=== PATIENT | female | born 1985 | race Caucasian/White ===

== ENCOUNTER 2016-05-02 10:05 | Outpatient (CLI) | payer MEDICAID ==
[~2016-05-02] VITALS: Ht 165.1 cm; Wt 88.8 kg
[2016-05-02 10:11] VITALS: BMI 32.1
[2016-05-02 10:12] VITALS: Ht 165.1 cm; Wt 88.8 kg
[2016-05-02 10:14] VITALS: BP 117/61; PULSE 90; RESP 20
[2016-05-02 10:47] LABS: URINE BLOOD (Dip) POC Trace-lysed (NEGATIVE)
== END 2016-05-02 12:15 | disposition left against medical advice (07) ==
LOC: OBT 10:05 → L-D 10:06 → OBT 12:15
PROVIDERS: ATTEND Obstetrics & Gynecology
DX: O48.0 Post-term pregnancy (principal); Z3A.41 41 weeks gestation of pregnancy
CPT/HCPCS: 81003; Z7500; G0463

== ENCOUNTER 2016-05-05 10:15 | Outpatient (CLI) | payer MEDICAID ==
[~2016-05-05] VITALS: Ht 165.1 cm; Wt 90.2 kg
[2016-05-05 10:25] VITALS: Ht 165.1 cm; Wt 90.2 kg
[2016-05-05 10:26] VITALS: BP 114/64; PULSE 86; RESP 18
--- NOTE | 2016-05-05 11:11 | RADRPT ---
PROCEDURE: OB ultrasound for biophysical profile CLINICAL INDICATION: Post dates TECHNIQUE: Multiple sonographic images of the pelvis were obtained. Transabdominal views of the g ravid uterus are available for review. The images were reviewed on a PACS workstation. COMPARISON: None FINDINGS: breathing movement = 2/2 tone = 2/2 motion = 2/2 MONISHA = 2/2 MONISHA = 8.2 cm Single live intrauterine with cardiac activity of 141 bpm. position is cephal ic. The placenta is anterior. IMPRESSION: 1. Single live intrauterine gestation. 2. Biophysical profile = 8/8. 3. MONISHA = 8.2 cm. RPTAT: HH .Vickie Mathew MD, MD Date Time Electronically viewed and signed by .Vickie Mathew MD, on 05/05/2016 11:11 .G/
--- NOTE | 2016-05-05 11:13 | RADRPT ---
PROCEDURE: US OB. CLINICAL INDICATION: Post dates TECHNIQUE: Multiple sonographic images of the pelvis were obtained. Transabdominal imaging only w as performed. The images were reviewed on a PACS workstation. COMPARISON: No prior studies are available for comparison. FINDINGS: There is a single live intrauterine gestation. Cardiac activity is present with 136 beats per minut e. position is cephalic. Measurements were made in order to determine age. The results are as follows: BPD = 9.18 cm HC = 32.05 cm AC = 36.57 cm FL = 7.46 cm. Estimated gestational age of approximately 38 weeks 0 days. The estimated date of delivery is 05/19/2016. The EFW = 3674 g, 44.5 %ile. The placenta is anterior. There is no evidence for an abruption or placenta previa. IMPRESSION: 1. Single live intrauterine gestation of approximately 38 weeks 0 days, by ultrasound criteria. 2. The estimated date of delivery is 05/19/2016. 3. The estimated weight is 3674 g, 44.5 %ile. RPTAT: HH .Vickie Mathew MD, Date Time Electronically viewed and signed by .Vickie Mathew MD, on 05/05/2016 11:13 .G/
--- NOTE | 2016-05-05 12:07 | HP ---
Date/Time of Note Date/Time of Note DATE: 05/05/16 TIME: 12:06 OB - History Hx of Present Free Text/Dictation @40+4 wks GA Postdate in early labor : 2 Para: 1 Ultrasounds: Normal mid trimester US Obstetrical Complications: None Medical Complications: None Past Family/Social History * Past Medical, Surgical, Family and Obstetric Histories reviewed from chart. OB Admission Exam Vital Signs Vital Signs Vital Signs Date Time Temp Pulse Resp B/P Pulse Ox O2 Delivery O2 Flow Rate FiO2 05/05/16 10:26 97.7 86 18 114/64 Room Air Physical Exam Abdomen: WNL Extremities: Normal Cervical Dilatation: 2cm Effacement: 50% Station: -1 Membranes: Intact Heart Rate: 140's Accelerations: Accelerations Present Decelerations: No Decelerations Varibility: Moderate Contractions on Admission: 6-10 Minutes Apart OB Assessment/Plan Reason for admission: induction of labor Plan: Expectant Management LAURA GARCÍA M.D. May 05, 2016 12:07
== END 2016-05-05 13:05 | disposition home or self-care (01) ==
LOC: OBT 10:15 → L-D 10:16 → OBT 13:05
PROVIDERS: ATTEND Obstetrics & Gynecology
DX: O48.0 Post-term pregnancy (principal); Z3A.00 Weeks of gestation of pregnancy not specified
CPT/HCPCS: 76815; 76818

== ENCOUNTER 2016-05-08 06:00 | Inpatient (IN) | payer MEDICAID ==
[~2016-05-08] VITALS: Ht 165.1 cm; Wt 89.5 kg
[2016-05-08] MEDS ORDERED: LACTATED RINGER'S 1,000 ML IV PRN (08:00)
[2016-05-08] MEDS: LACTATED RINGER'S 1,000 ML IV SCH ×4 (08:52→17:39)
[2016-05-08] MEDS ORDERED: MISOPROSTOL 200 MCG TAB PR PRN (09:00)
[2016-05-08] MEDS ORDERED: METHYLERGONOVINE 0.2 MG INJ IM PRN (09:00)
[2016-05-08] MEDS ORDERED: LIDOCAINE 1% (MPF) 30 ML INJ INJ PRN (09:00)
[2016-05-08] MEDS ORDERED: CARBOPROST 250 MCG INJ IM PRN (09:00)
[2016-05-08] MEDS ORDERED: BUTORPHANOL 2 MG INJ IV PRN (09:00)
[2016-05-08] MEDS ORDERED: DINOPROSTONE 10 MG VAG SUPP VAG ONE (09:00)
[2016-05-08] MEDS ORDERED: OXYTOCIN 30 UNITS/LR 500 ML IV PRN (09:00)
[2016-05-08] MEDS ORDERED: OXYTOCIN 30 UNITS/LR 500 ML IV SCH ×3 (09:00)
[2016-05-08 10:01] LABS: BASOPHILS % 0.6 % (0.0-2.0); EOSINOPHILS # 0.1 10^3/ul (0.0-0.5); EOSINOPHILS % 1.3 % (0.0-7.0); HEMOGLOBIN 13.1 g/dl (12.0-16.0); LYMPHOCYTES # 1.2 10^3/ul (0.8-2.9); LYMPHOCYTES % 17.2 % (15.0-51.0); MEAN CORPUSCULAR HEMOGLOBIN 27.2 pg (29.0-33.0); MEAN CORPUSCULAR HGB CONC 33.5 g/dl (32.0-37.0); MEAN CORPUSCULAR VOLUME 81.1 fl (82.0-101.0); MEAN PLATELET VOLUME 11.5 fl (7.4-10.4); MONOCYTE # 0.4 10^3/ul (0.3-0.9); MONOCYTES % 5.2 % (0.0-11.0); NEUTROPHIL # 5.4 10^3/ul (1.6-7.5); NEUTROPHILS % 75.7 % (39.0-77.0); PLATELET COUNT 149 10^3/UL (140-440); RED BLOOD COUNT 4.81 10^6/ul (4.20-5.40); UNCORRECTED WBC 7.1 10^3/ul (4.8-10.8); WHITE BLOOD COUNT 7.1 10^3/ul (4.8-10.8)
[2016-05-08 10:03] LABS: CONDITION 1; LH ANALYZER COMMENTS 1; SUSPECT 1
[2016-05-08 11:13] LABS: INR 1.04; PROTIME 13.6 Sec (12.2-14.2); PT RATIO 1.1
[2016-05-08 11:14] LABS: PARTIAL THROMBOPLASTIN TIME 27.5 Sec (25.0-35.0)
[2016-05-08 14:08] LABS: PLATELETS CLUMPS NO CLUMPS
[2016-05-08 16:10] VITALS: Ht 165.1 cm; Wt 89.5 kg
[2016-05-08 16:12] VITALS: BP 125/73; PULSE 74; RESP 20
[2016-05-08] MEDS ORDERED: FENTAnyl 2MCG/ML-ROPIV 0.2% 100 ML ONE (16:42)
[2016-05-08] MEDS ORDERED: FENTAnyl 2MCG/ML-ROPIV 0.2% 100 ML BAG EPI SCH (17:30)
[2016-05-08] MEDS ORDERED: NALOXONE (0.4 MG/ML) INJ IV PRN (17:30)
[2016-05-08] MEDS ORDERED: MINERAL OIL LIGHT 10 ML VIAL TOP PRN (19:30)
--- NOTE | 2016-05-08 20:14 | LDN ---
Date/Time of Note Date/Time of Note DATE: 05/08/16 TIME: 20:09 Delivery Summary Normal spontaneous vaginal delivery of a baby boy from HAYDEE position shoulders delivered without any difficulty but required suprapubic pressure, the rest of the baby's body follow after the delivery of the shoulders cord clamped after stopped pulsation placenta spontaneous expulsion inspected complete slightly meconium stained and it was sent to the pathology baby's weight was 8 lbs. 9 oz. and patient sustained second-degree perineal laceration which was repaired with 2 0 and 3-0 chromic catgut estimated blood loss 250 cc at the end of the delivery uterus was firm vagina inspected no bleeding noted from the site of the repair. Placenta Delivered: Spontaneously Meconium: Light Perineum intact?: No Perineal laceration repair: Second-degree perineal laceration repair with 2 0 and 4-0 chromic catgut Anesthesia type: Epidural Sponge & Needle done & correct: Yes All needle counts correct: Yes Any foreign bodies felt in the: No Problems: Infant Delivery Information Sex Sex: male Apgars 1 Minute: 9 5 Minute: 9 Suctioning Nose & mouth suctioned at fausto: Yes Delee suction performed: No Umbilical Cord Umbilical cord with: 3 Vessels Cord presentations: no nuchal cord Cord Blood was obtained: Yes NIKITA ENRIQUE MD May 08, 2016 20:14
--- NOTE | 2016-05-08 20:30 | HP ---
Date/Time of Note Date/Time of Note DATE: 05/08/16 TIME: 20:15 OB - History Hx of Present Free Text/Dictation 30 years old female 2 para 1 EDC of May 01, 2016 admitted to [facility] for induction of labor ,on admission cervical dilatation was at 5 cm 80% effacement vertex at -1 station patient underwent IV Pitocin drip induction. Past OB history, vaginal delivery 8 years Allergy denies allergy to any known medication Social habit denies a smoking or drink Review of system within normal Physical exam 5 feet 5" 189 Temp 90.1 pulse 80 respiration blood pressure 128/60 Estimated Due Date: May 01, 2016 : 2 Para: 1 Care: Good Care Ultrasounds: Normal mid trimester US Obstetrical Complications: None Medical Complications: None Past Family/Social History * Past Medical, Surgical, Family and Obstetric Histories reviewed from chart. Rubella: immune RPR/VDRL: Negative GBS Status: Negative HBsAG: Negative OB Admission Exam Vital Signs Vital Signs Vital Signs Date Time Temp Pulse Resp B/P Pulse Ox O2 Delivery O2 Flow Rate FiO2 05/08/16 16:12 98.1 74 20 125/73 Room Air Physical Exam HEENT: WNL Lungs: Clear, Equal Abdomen: WNL Extremities: Normal Reflexes: Normal Cervical Dilatation: 5cm Effacement: 75% Station: -1 Membranes: Intact Amniotic Fluid: Thin Meconium Heart Rate: 130's Accelerations: Accelerations Present Decelerations: Early Decelerations Varibility: Marked Contractions on Admission: 6-10 Minutes Apart Intensity: Mild Last 72 hours Lab Results CBC & BMP 05/08/16 07:44 NIKITA ENRIQUE MD May 08, 2016 20:25
[2016-05-08] MEDS ORDERED: OXYCODONE/ASPIRIN (4.88/325) TAB PO PRN ×2 (21:30)
[2016-05-08] MEDS ORDERED: ACETAMINOPHEN 325 MG TAB PO PRN (21:30)
[2016-05-08] MEDS ORDERED: LANOLIN 7 GM TUBE TOP PRN (21:30)
[2016-05-08] MEDS ORDERED: WITCH HAZEL/GLYCERIN PAD PR PRN (21:30)
[2016-05-08] MEDS ORDERED: ONDANSETRON 4 MG INJ IV PRN (21:30)
[2016-05-08] MEDS ORDERED: BENZOCAINE 20% 56 ML SPRAY TOP PRN (21:30)
[2016-05-08] MEDS ORDERED: ACETAMINOPHEN/CODEINE #3 TAB PO PRN ×2 (21:30)
[2016-05-08] MEDS ORDERED: DIBUCAINE 1% 30 GM OINT PR PRN (21:30)
[2016-05-08 22:00] VITALS: BP 111/63; PULSE 90; RESP 18
[2016-05-08] MEDS: OXYTOCIN 30 UNITS/LR 500 ML IV SCH (22:37)
[2016-05-08 23:00] VITALS: BP 110/72; PULSE 130
[2016-05-08] MEDS: IBUPROFEN 600 MG TAB PO SCH (23:13)
[2016-05-09] MEDS: OXYTOCIN 30 UNITS/LR 500 ML IV SCH (01:04)
[2016-05-09 04:00] VITALS: BP 102/64; PULSE 70; RESP 19
[2016-05-09] MEDS: IBUPROFEN 600 MG TAB PO SCH ×4 (05:14→23:31)
[2016-05-09 08:30] VITALS: BP 100/59; PULSE 71; RESP 18
[2016-05-09] MEDS: SENNA/DOCUSATE NA (8.6MG/50MG) TAB PO SCH ×2 (09:18→20:19)
--- NOTE | 2016-05-09 09:54 | PN ---
Date/Time of Note Date/Time of Note DATE: 05/09/16 TIME: 09:54 OB Subjective Subjective Subjective day 1 Afebrile abdomen soft uterus firm lochia normal extremity normal ambulation recommended Laboratory Tests Test 05/08/16 10:10 05/09/16 00:46 Activated Partial Thromboplast Time 27.5Sec INR International Normalized Ratio 1.04 Prothrombin Time 13.6Sec Prothrombin Time Ratio 1.1 Bedside Glucose 57mg/dL Current Medications Medications (Trade) Dose Ordered Sig/Myles Route PRN Reason Start Time Stop Time Status Last Admin Dose Admin Lactated Ringer's 1,000 ml @ 125 mls/hr Q8H IV 05/08/16 08:52 05/08/16 21:21 DC 05/08/16 16:13 Lactated Ringer's (Lr) 1,000 ml @ 125 mls/hr Q8H IV 05/08/16 08:52 05/08/16 21:21 DC 05/08/16 17:39 Dinoprostone 10 mg 10 mg ONCE ONCE VAG 05/08/16 09:00 05/08/16 09:02 DC 05/08/16 09:28 Oxytocin/Lactated Ringer's 500 ml @ 0 mls/hr TITRATE IV 05/08/16 09:00 05/08/16 21:21 DC 05/08/16 17:37 Butorphanol Tartrate (Stadol) 2 mg Q2H PRN IV PAIN 05/08/16 09:00 05/08/16 21:21 DC 05/08/16 15:39 Lidocaine 30 ml 30 ml ONCE PRN INJ EPISIOTOMY/TEARING 05/08/16 09:00 05/08/16 21:21 DC Oxytocin/Lactated Ringer's 500 ml @ 125 mls/hr ONCE -MAY REPEAT X1 IV 05/08/16 09:00 05/08/16 21:21 DC Oxytocin/Lactated Ringer's 500 ml @ 125 mls/hr ONCE IV 05/08/16 09:00 05/08/16 21:21 DC Lactated Ringer's 1,000 ml @ 2,000 mls/hr Q30M PRN IV PRE-EPIDURAL BOLUS 05/08/16 08:00 05/08/16 21:21 DC 05/08/16 16:39 Oxytocin/Lactated Ringer's 500 ml @ 0 mls/hr ONCE PRN IV For Hemorrhage Management 05/08/16 09:00 05/08/16 21:20 DC Methylergonovine Maleate (Methergine) 0.2 mg ONCE PRN IM VAGINAL BLEEDING 05/08/16 09:00 05/08/16 21:20 DC Carboprost Tromethamine (Hemabate) 250 mcg ONCE PRN IM VAGINAL BLEEDING 05/08/16 09:00 05/08/16 21:20 DC Misoprostol 1000 mcg 1,000 mcg ONCE PRN VT VAGINAL BLEEDING 05/08/16 09:00 05/08/16 21:20 DC Fentanyl/ Ropivacaine 100 ml @ STK-MED ONCE .ROUTE 05/08/16 16:42 05/08/16 16:43 DC Naloxone HCl (Narcan) 0.2 mg Q2M PRN IV FOR RESP RATE 8 OR LESS 05/08/16 17:30 05/08/16 21:20 DC Fentanyl/ Ropivacaine 100 ml EPIDURAL (PCEA) EPI 05/08/16 17:30 05/08/16 21:20 DC Mineral Oil PRN PRN TOP DECREASED GLUCOSE 05/08/16 19:30 05/08/16 21:20 DC Oxytocin/Lactated Ringer's 500 ml @ 125 mls/hr Q4H IV 05/08/16 21:18 05/09/16 05:17 DC 05/09/16 01:04 Ibuprofen (Motrin) 600 mg Q6 PO 05/09/16 00:00 05/09/16 05:14 Acetaminophen (Tylenol Tab) 650 mg Q4H PRN PO PAIN LEVEL 1-5 05/08/16 21:30 Acetaminophen/ Codeine Phosphate (Tylenol No.3) 1 tab Q4H PRN PO PAIN LEVEL 1-5 05/08/16 21:30 Acetaminophen/ Codeine Phosphate (Tylenol No.3) 2 tab Q4H PRN PO PAIN LEVEL 6-10 05/08/16 21:30 Oxycodone/Aspirin (Percodan) 1 tab Q3H PRN PO PAIN LEVEL 1-5 05/08/16 21:30 Oxycodone/Aspirin (Percodan) 2 tab Q3H PRN PO PAIN LEVEL 6-10 05/08/16 21:30 Ondansetron HCl (Zofran Inj) 4 mg Q6H PRN IV NAUSEA AND/OR VOMITING 05/08/16 21:30 Senna/Docusate Sodium (Senokot-S) 1 tab BID PO 05/09/16 09:00 05/09/16 09:18 Witch Niki/ Glycerin (Tucks Pads) 1 pad BEDSIDE MEDICATION PRN VT HEMORRHOID/EPISIOTMY PAIN 05/08/16 21:30 05/08/16 23:13 Benzocaine (Dermoplast [place]) 1 spray BEDSIDE MEDICATION PRN TOP HEMORRHOID/EPISIOTMY PAIN 05/08/16 21:30 05/08/16 23:13 Dibucaine (Nupercainal) 1 applic BEDSIDE MEDICATION PRN VT HEMORRHOID/EPISIOTMY PAIN 05/08/16 21:30 Lanolin (Jyf-L-Ljiraf) 1 applic BEDSIDE MEDICATION PRN TOP BEDSIDE FOR CARMEN TO NIPPLES 05/08/16 21:30 Measles/Mumps/ Rubella Vaccine Live (Mmr Ii Vaccine) 0.5 ml ONCE ONCE SC* 05/10/16 09:00 05/10/16 09:01 NIKITA ENRIQUE MD May 09, 2016 09:54
[2016-05-09 16:21] VITALS: BP 111/67; PULSE 89; RESP 18
[2016-05-09 17:20] LABS: BASOPHILS % 0.4 % (0.0-2.0); EOSINOPHILS # 0.1 10^3/ul (0.0-0.5); EOSINOPHILS % 0.9 % (0.0-7.0); HEMATOCRIT 27.6 % (37.0-47.0); HEMOGLOBIN 9.2 g/dl (12.0-16.0); LYMPHOCYTES # 1.5 10^3/ul (0.8-2.9); LYMPHOCYTES % 18.8 % (15.0-51.0); MEAN CORPUSCULAR HEMOGLOBIN 27.3 pg (29.0-33.0); MEAN CORPUSCULAR HGB CONC 33.4 g/dl (32.0-37.0); MEAN CORPUSCULAR VOLUME 81.9 fl (82.0-101.0); MEAN PLATELET VOLUME 10.5 fl (7.4-10.4); MONOCYTE # 0.4 10^3/ul (0.3-0.9); MONOCYTES % 4.5 % (0.0-11.0); NEUTROPHIL # 6.1 10^3/ul (1.6-7.5); NEUTROPHILS % 75.4 % (39.0-77.0); PLATELET COUNT 143 10^3/UL (140-440); RED BLOOD COUNT 3.37 10^6/ul (4.20-5.40); RED CELL DISTRIBUTION WIDTH 16.8 % (11.5-14.5)
[2016-05-09 17:31] LABS: CONDITION 1; LH ANALYZER COMMENTS 1
[2016-05-09 20:00] VITALS: BP 114/71; PULSE 66; RESP 18
[2016-05-09 20:20] VITALS: BP 106/53; PULSE 87; RESP 16
[2016-05-10 03:30] VITALS: BP 110/63; PULSE 75; RESP 18
[2016-05-10] MEDS: IBUPROFEN 600 MG TAB PO SCH ×3 (05:31→17:27)
[2016-05-10 07:45] VITALS: BP 107/69; PULSE 84; RESP 18
[2016-05-10] MEDS ORDERED: MEASLES,MUMPS,RUBELLA VACCINE INJ SC* ONE (09:00)
[2016-05-10] MEDS: SENNA/DOCUSATE NA (8.6MG/50MG) TAB PO SCH (09:44)
--- NOTE | 2016-05-10 13:16 | PD.PPDC ---
GLOBAL LEAD Discharge Instruction Condition Patient Condition: Good Diet Diet: Resume Regular Diet Activity/Restrictions Activity: Normal Activity May Shower Restrictions: No Exercising No Lifting No Driving No Sexual Activity Nothing in the Vagina No [place] No Tampons, douche Follow-up Follow-up with Physician: 2, Week/Weeks Return to clinic for [employer] Instructions: Fever greater than 101 Worsening abdominal pain More than 2 pads per hour OB Instructions: Breast Tenderness Blurried Vision NIKITA ENRIQUE MD May 10, 2016 13:15
--- NOTE | 2016-05-10 13:19 | DS ---
Date/Time of Note Date/Time of Note DATE: 05/10/16 TIME: 13:16 Obstetrical Discharge Record Final Diagnosis Final Diagnosis: Term delivered Vaginal Delivery Obstetrical Delivery: Spontaneous Condition on Discharge Physical Assessment Last Vitals: vs stable abdomen soft ,lochia normal ext normal,discharged home with instruction ,appointment office in 2 weeks Voiding: Yes Breast: Soft, non-tender, Filling Fundus: Firm Calf Tenderness: No Patient Condition: Good NIKITA ENRIQUE MD May 10, 2016 13:19
[2016-05-10 16:00] VITALS: BP 114/59; PULSE 88; RESP 18
== END 2016-05-10 18:00 | disposition home or self-care (01) | DRG 775 ==
LOC: L-D 07:18 → PP1 21:55
PROVIDERS: ADMIT Obstetrics & Gynecology; ATTEND Obstetrics & Gynecology
PROC: 0KQM0ZZ Repair Perineum Muscle, Open Approach (ICD-10-PCS; 2016-05-08)
PROC: 10E0XZZ Delivery of Products of Conception, External Approach (ICD-10-PCS; principal; 2016-05-08 06:00)
DX: O70.1 Second degree perineal laceration during delivery (principal); Z37.0 Single live birth; Z3A.39 39 weeks gestation of pregnancy
CPT/HCPCS: 62319; 82962; 85025; 85610; 85730; 86592; 86900; 86901; 87340; 99464; J2590; J3010; J7120